=== PATIENT | male | born 1960 | race Hispanic/Latino ===

== ENCOUNTER 2017-06-30 12:23 | Emergency (ER) | payer BC, OTHER ==
[~2017-06-30] VITALS: Ht 172.7 cm; Wt 104.9 kg
== END 2017-06-30 13:25 | disposition home or self-care (01) ==
LOC: FSED 12:23
DX: R05 Cough (principal); J00 Acute nasopharyngitis [common cold]; J04.0 Acute laryngitis
CPT/HCPCS: 99283